=== PATIENT | female | born 1960 | race Caucasian/White ===

== ENCOUNTER 2025-04-05 12:54 | Emergency (ER) | payer OTHER ==
[~2025-04-05] VITALS: Ht 165.1 cm; Wt 59.0 kg
--- NOTE | 2025-04-05 13:37 | ERN ---
General Chief Complaint: Flank Pain Stated Complaint: LEFT FLANK PAIN Time Seen by MD: 12:57 Source: patient History of Present Illness Initial Comments Ms. Donovan is a 64-year-old female who presented to the with left flank pain. The pain starts her about 2 days ago and became progressively severe this morning. Patient rates the pain as 8/10 on a pain scale. Patient has a previous medical history of renal calculi in both kidneys. She had similar symptoms 1 year ago and passed her stone in the urine. Patient denies any increased urinary frequency, urinary urgency, fever, rash, and change in bowel movements. Patient denies any cough, chest pain, or shortness of breath. Allergies: Coded Allergies: Penicillins (Unverified Allergy, Unknown, 04/05/25) Sulfa (Sulfonamide Antibiotics) (Unverified Allergy, Unknown, 04/05/25) Home Meds Active Scripts Pantoprazole Sodium (Protonix) 20 Mg Tablet.dr, 1 TAB PO DAILY for 30 Days, #30 TAB 0 Refills Prov:WESLEY FERNANDEZ MD 04/05/25 Ketorolac Tromethamine (Toradol) 10 Mg Tab, 1 TAB PO Q6HPRN PRN for pain for 5 Days, #20 TAB 0 Refills Prov:WESLEY FERNANDEZ MD 04/05/25 Past Medical History Past Medical History: High Cholesterol, Kidney Stone, Other Medical History Other: osteoarthritis, palpitations Past Surgical History: Cholecystectomy, Other Surgical History Other: lt ankle sx, d/dx3 ROS Dictation CONSTITUTIONAL: No chills, no fever, no weakness, no diaphoresis, no malaise. HEAD/FACE: No signs of trauma. EENT: No eye pain, no blurred vision, no tearing, no double vision, no ear pa in, no ear discharge, no nose pain, no nasal congestion, no throat pain, no throat swelling, no mouth pain. RESPIRATORY: No cough, no orthopnea, no PND, no wheezing. CARDIOVASCULAR: No chest pain, no edema, no palpitations, no syncope. GASTROINTESTINAL/ABDOMINAL: Left flank pain, no constipation, no diarrhea, nausea, vomiting. GENITOURINARY: No abnormal discharge, no dysuria, no frequent urination, no hematuria. No complaints of pain in the genitals. MUSCULOSKELETAL: No back pain, no gout, no joint pain, no joint swelling, no muscle pain, no muscle stiffness, no neck pain. INTEGUMENTARY: No change in color, no change in hair/nails, no dryness, no lesion, no lumps, no rash. NEUROLOGICAL/PSYCH: No anxiety, not depressed, no emotional problem, no headache, no numbness, no pre-existing deficit, no history of seizures, no tremors, no weakness. HEMATOLOGIC/LYMPHATIC: Not anemic, no history of blood clots, no apparent bleeding, no bruising, glands not swollen. All Systems Negative, Except as Noted. Physical Exam Physical Exam Dictation VITAL SIGNS: Reviewed. GENERAL APPEARANCE: Alert, oriented x3 HEAD AND FACE: Non-traumatic. EYES: PERRL, pink conjunctivas, eyelid no trauma, anterior chamber clear. EARS: Pinnas intact and no signs of trauma or erythema. Ear canals clear and no discharge. TMs no erythema. NOSE: No discharge, no bleeding. OROPHARYNX: Mouth normal, teeth no caries, tongue pink. Pharynx clear, no erythema. Tonsils no exudates, no abscesses noted. Mucous membrane moist. NECK: Supple, non-tender, no thyromegaly, no masses, no JVD, no bruits. BREAST: Deferred. CHEST: No tenderness, no crepitus, no paradoxical movement, no retractions. LUNGS: Clear, well-ventilated, symmetric, no rales, no wheezing, no rhonchi, no stridor, good breath sounds bilaterally. HEART: Regular rate, regular rhythm, no murmur, no gallops. VASCULAR: No peripheral edema. ABDOMEN: Soft, positive bowel sounds, nondistended, no guarding, nontender, no rebound, no masses no hepatomegaly, no splenomegaly, no Zabala's sign, no hernias. RECTAL: Deferred. GENITAL: Deferred. NEUROLOGICAL: Normal speech, gross motor function intact, gross sensory function intact. MUSCULOSKELETAL: Neck nontender, full range of motion, back nontender, full range of motion. EXTREMITIES: Nontender, full range of motion. SKIN: Color pink, dry, no turgor, no rash, no lacerations, no abrasions, no contusions. LYMPHATICS: Deferred. Results Laboratory and Microbiology Lab and Micro Result Laboratory Tests Test 04/05/25 13:03 7/23/25 13:39 Urine Color COLORLESS (YELLOW) Urine Appearance CLEAR (CLEAR) Urine pH 6.5 (5.0-8.0) Urine Specific [place] 1.002 (1.001-1.031) Urine Protein NEGATIVE mg/dL (NEGATIVE) Urine Glucose (UA) NEGATIVE mg/dL (NEGATIVE) Urine Ketones NEGATIVE mg/dL (NEGATIVE) Urine Occult Blood NEGATIVE (NEGATIVE) Urine Nitrate NEGATIVE (NEGATIVE) Urine Bilirubin NEGATIVE mg/dL (NEGATIVE) Urine Urobilinogen 0.2 mg/dL (0.2-1.0) Urine Leukocyte Esterase NEGATIVE [place]/uL White Blood Count 11.1 K/uL (4.8-10.8) H Red Blood Count 4.47 MIL/uL (4.00-5.50) Hemoglobin 13.2 g/dL (12.0-16.0) Hematocrit 39.1 % (36-48) Mean Corpuscular Volume 87.5 fL (79-99) Mean Corpuscular Hemoglobin 29.5 pg (27.0-33.0) Mean Corpuscular Hemoglobin Concent 33.8 g/dL (32.0-36.0) Red Cell Distribution Width 12.6 % (11.0-15.5) Platelet Count 257 K/uL (130-400) Mean Platelet Volume 11.6 fL (7.5-10.5) H Immature Granulocyte % (Auto) 0.2 % (0-1) Neutrophils (%) (Auto) 64.4 % (40.0-77.0) Lymphocytes (%) (Auto) 25.1 % (21.0-51.0) Monocytes (%) (Auto) 7.0 % (3.0-13.0) Eosinophils (%) (Auto) 2.9 % (0.0-8.0) Basophils (%) (Auto) 0.4 % (0.0-5.0) Neutrophils # (Auto) 7.2 K/uL (1.8-7.7) Lymphocytes # (Auto) 2.8 K/uL (1.0-4.8) Monocytes # (Auto) 0.8 K/uL (0.1-1.0) Eosinophils # (Auto) 0.32 K/uL (0.00-0.70) Basophils # (Auto) 0.05 K/uL (0.00-0.20) Absolute Immature Granulocyte (auto 0.02 K/uL (0-1) Nucleated Red Blood Cells 0.0 % (0.0-0.19) Sodium Level 139 mmol/L (136-145) Potassium Level 3.9 mmol/L (3.5-5.1) Chloride Level 105 mmol/L (101-111) Carbon Dioxide Level 28 mmol/L (21-32) Blood Urea Nitrogen 17 mg/dL (7-18) Creatinine 0.7 mg/dL (0.5-1.0) Glomerular Filtration Rate Calc 97 mL/min (>90) Random Glucose 93 mg/dL (70-105) Total Calcium 8.7 mg/dL (8.5-10.1) Lipase 67 U/L (16-77) MDM CC: Pt presented with left flank pain and nausea since 2 days that worsened today. Pt denied dysuria, fever, rashes, constipation, cough, vomiting, and c hange in bowel movements. PMH of renal calculi, but otherwise unremarkable. Vitals were stable in the ED and her labs were unremarkable. Lipase is 67, WBCs mildly elevated 11,000. Urinalysis was unremarkable. No occult blood, pus or white cells. Chest x-ray was unremarkable except for small pleural effusion CT abdomen and pelvis only showed 3 mm renal calculi and colonic diverticulosis without inflammation. No renal stones observed in the ureters. Differential: Renal calculi, Peptic ulcer disease, diverticulosis. Treatment: Pr treated with Dilaudid 0.2mg IV, and Toradol 15mg IV with 1 litre if Lactated Ringers in the ED. Pt symptoms improved subsequently. Plan: To discharge the patient with oral Ketorolac 10mg and Pantoprazole 10mg. Advised her to drink plenty of fluids. Pt advised to follow up with PCP in one week. Advised patient to come to ED if the symptoms worsen. ED Course Orders Procedure Category Date Status Time Cbc With Differential LAB 04/05/25 Complete 13:31 Basic Metabolic Panel LAB 04/05/25 Complete 13:31 Urinalysis Profile LAB 04/05/25 Complete 13:31 Chest 1vw RAD 04/05/25 Resulted 13:31 Ct Abdomen/Pelvis W/O CT 04/05/25 Resulted Contrast 13:31 Lipase LAB 04/05/25 Complete 13:31 Hydromorphone 0.5mg PHA 04/05/25 Complete Syg (Dilaudid 0.5mg 14:00 Ketorolac PHA 04/05/25 Complete Tromethamine 15mg/Ml 14:00 Lactated Ringers PHA 04/05/25 Complete 1000ml (Lactated 14:00 Current Medications Medications (Trade) Dose Ordered Sig/Camron Route PRN Reason Start Time Stop Time Status Last Admin Dose Admin Hydromorphone HCl (DiLAUDid 0.5MG INJ) 0.2 mg ONCE ONCE IVP 04/05/25 14:00 04/05/25 14:01 DC 04/05/25 14:01 Ketorolac Tromethamine (toRADol) 15 mg ONCE ONCE IV 04/05/25 14:00 04/05/25 14:01 DC 04/05/25 14:00 Lactated Ringer's 1,000 ml @ 500 mls/hr Q2H IV 04/05/25 14:00 04/05/25 15:59 DC 04/05/25 14:00 Vital Signs Date Time Temp Pulse Resp B/P (MAP) Pulse Ox O2 Delivery O2 Flow Rate FiO2 04/05/25 16:19 97.2 70 18 121/67 96 Room Air* 0 21 04/05/25 12:59 97.2 72 18 116/66 98 Room Air* 0 21 04/05/25 12:56 97.9 72 18 96 Room Air 0 DX & DISP Disposition: Discharge Departure Impression: Primary Impression: Renal calculus, right Additional Impression: Diverticulosis of colon without diverticulitis Condition: Stable Scripts Pantoprazole Sodium (Protonix) 20 Mg Tablet.dr 1 TAB PO DAILY for 30 Days, #30 TAB 0 Refills Prov: WESLEY FERNANDEZ MD 04/05/25 Ketorolac Tromethamine (Toradol) 10 Mg Tab 1 TAB PO Q6HPRN PRN for pain for 5 Days, #20 TAB 0 Refills Prov: WESLEY FERNANDEZ MD 04/05/25 Additional Instructions: There are no renal stones in the ureter. Increase fluid intake. Take the pain medication and follow up with your PCP in a week. Referrals: SELF,REFERRAL (PCP) I have reviewed the case, and I agree with, Diagnosis and Plan I performed a substantive portion of the visit. I have reviewed and personally made and approve the management plan that is documented in the notes by myself with NAOMI/resident. I acknowledged full responsibility for the patient's management plan. WESLEY FERNANDEZ MD Apr 05, 2025 13:37 BHARATH MONAE DO Apr 05, 2025 18:05
[2025-04-05 13:42] LABS: IMMATURE GRANULOCYTE ABSOLUTE 0.02 K/uL (0-1); NUCLEATED RED BLOOD CELLS 0.0 % (0.0-0.19); PLATELET COUNT (AUTO) 257 K/uL (130-400); RED BLOOD CELL COUNT(AUTO) 4.47 MIL/uL (4.00-5.50); RED CELL DISTRIBUTION WIDTH 12.6 % (11.0-15.5); WHITE BLOOD COUNT (AUTO) 11.1 K/uL (4.8-10.8)
[2025-04-05 13:49] LABS: CREATININE 0.7 mg/dL (0.5-1.0); GLOMERULAR FILTR. RATE CALC 97.0 mL/min (>90); GLUCOSE,RANDOM 93.0 mg/dL (70-105); SODIUM SERUM 139.0 mmol/L (136-145); UREA NITROGEN, BLOOD 17.0 mg/dL (7-18)
[2025-04-05] MEDS: LACTATED RINGERS 1000ML 1,000 ML IV SCH (14:00)
--- NOTE | 2025-04-05 14:42 | HMCIMG ---
EXAM: CR Chest, 1 View. CLINICAL HISTORY: Left flank pain COMPARISON: None provided. FINDINGS: LUNGS: There is no mass, infiltrate, or acute pulmonary abnormality. PLEURAL SPACES: Small left pleural effusion. No pneumothorax. MEDIASTINUM: Cardiac size and mediastinal contours within normal limits. BONES: No aggressive appearing osseous lesion seen. Calcified bilateral breast prostheses. IMPRESSION: 1. Small left pleural effusion. /[place]
[2025-04-05 14:52] LABS: APPEARANCE,URINE CLEAR (CLEAR); GLUCOSE, URINE (UA) NEGATIVE (NEGATIVE); LEUKOCYTE ESTERASE ,URINE NEGATIVE Leu/uL (NEGATIVE); NITRATE,URINE NEGATIVE (NEGATIVE); OCCULT BLOOD,URINE NEGATIVE (NEGATIVE)
[2025-04-05 15:03] LABS: ADD UA MICROSCOPIC NO
--- NOTE | 2025-04-05 15:34 | HMCIMG ---
EXAM: CT Abdomen and Pelvis Without IV contrast CLINICAL HISTORY: Left flank pain, Renal Calculi? TECHNIQUE: Axial computed tomography images of the abdomen and pelvis without intravenous contrast. CONTRAST: No IV contrast. COMPARISON: None provided. FINDINGS: LUNG BASES: Dependent airway disease along bilateral lower lobes, presumed to represent basal atelectasis. No pleural effusions are seen. Bilateral peripherally calcified rounded hypodensities in both breast parenchyma. LIVER: The liver is enlarged in size. The right hepatic lobe measures up to 15.5 cm. GALLBLADDER AND BILE DUCTS: Post cholecystectomy status. No biliary ductal dilatation is evident. PANCREAS: Unremarkable. SPLEEN: Unremarkable. ADRENAL GLANDS: Unremarkable. KIDNEYS, URETERS, AND BLADDER: Tiny 3.0 mm non-obstructive renal calculus in the right kidney. Mild prominence of bilateral pelvicalyceal system. The kidneys appear within normal limits. There is no hydroureter. No urinary calculi are seen. STOMACH AND BOWEL: Colonic diverticulosis without diverticulitis. Unremarkable appearance of the stomach and small bowel. No evidence of bowel obstruction. No evidence suggesting enteritis or colitis. APPENDIX: No evidence of acute appendicitis on CT examination. PERITONEUM: No free fluid. No free air. LYMPH NODES: Calcified lymph node in pelvic region adjacent to the anterior wall of urinary bladder. Linear hyperdense structures along left common iliac vessels and posterior to the uterus. REPRODUCTIVE: Unremarkable as visualized. VASCULATURE: Atherosclerotic changes in the form of eccentric vessel wall calcification in the abdominal aorta and its major branches. No evidence of abdominal aortic aneurysm. BONES: Degenerative changes in the visualised spine in the form of marginal osteophytes and degenerative discs at multiple lumbar levels. No aggressively appearing osseous lesion. No acute osseous pathology evident. IMPRESSION: 1. 3.0 mm non-obstructing right renal calculus. 2. Mild hepatomegaly. 3. Colonic diverticulosis without diverticulitis. /[place]
[2025-04-05] MEDS ORDERED: KETO10 PO (15:49)
[2025-04-05] MEDS ORDERED: PANT20TA PO (16:01)
[2025-04-05 16:19] VITALS: BP 121/67; PULSE 70; RESP 18; TEMP 97.2; O2SAT 96
== END 2025-04-05 16:20 | disposition home or self-care (01) ==
LOC: EDH 12:54
DX: N20.0 Calculus of kidney (principal); K57.30 Diverticulosis of large intestine without perforation or abscess without bleeding; E78.00 Pure hypercholesterolemia, unspecified; M19.90 Unspecified osteoarthritis, unspecified site; Z79.899 Other long term (current) drug therapy; Z88.0 Allergy status to penicillin; Z88.2 Allergy status to sulfonamides; Z90.49 Acquired absence of other specified parts of digestive tract
CPT/HCPCS: 99285; 74176; 96374; 71045; 96375; 80048; 83690; 85025; 81003; 36415; J1885; J1171